=== PATIENT | female | born 1995 | race African-American/Black ===

== ENCOUNTER 2019-05-18 13:35 | Emergency (ER) | payer MEDICAID ==
[~2019-05-18] VITALS: Ht 165.1 cm; Wt 50.0 kg
[2019-05-18] MEDS ORDERED: LORAZEPAM 1MG TABLET PO ONE (14:00)
[2019-05-18 14:29] LABS: BASOPHILS % 0.7 % (0.0-2.0); EOSINOPHILS % 0.3 % (0.0-5.0); HEMATOCRIT. 37.3 % (36.0-48.0); HEMOGLOBIN. 12.8 g/dL (12.0-16.0); LYMPHOCYTES % 22.1 % (20.0-50.0); MEAN CORPUSCULAR HEMOGLOBIN 31.4 pg (28.0-32.0); MEAN CORPUSCULAR VOLUME 91.4 fL (81.0-99.0); MEAN PLATELET VOLUME 8.1 fl (7.4-10.4); MONOCYTES % 10.3 % (2.0-8.0); NEUTROPHILS % 66.6 % (40.0-76.0); PLATELET 339 x1000/uL (130-400); RED BLOOD CELL COUNT 4.08 mill/uL (4.2-5.4); RED CELL DISTRIBUTION WIDTH 15.6 % (11.6-14.6)
[2019-05-18 14:35] LABS: CHLORIDE 106 mEq/L (98-107)
[2019-05-18 14:39] LABS: ETHANOL BLOOD < 10 mg/dL
[2019-05-18] MEDS ORDERED: POTASSIUM CHLORIDE 20MEQ TABLET SR PO ONE (16:00)
[2019-05-18 16:11] VITALS: BP 114/62
== END 2019-05-18 16:12 | disposition home or self-care (01) ==
LOC: ER 14:05
DX: T40.7X1A Poisoning by cannabis (derivatives), accidental (unintentional), initial encounter (principal); R53.1 Weakness; R42 Dizziness and giddiness; F12.10 Cannabis abuse, uncomplicated; Z59.0 Homelessness; Y92.89 Other specified places as the place of occurrence of the external cause
CPT/HCPCS: 36415; 80307; 80320; 80329; 93005; 99284; G0480